=== PATIENT | female | born 1990 | race Caucasian/White ===

== ENCOUNTER 2017-12-24 18:42 | Emergency (ER) | payer OTHER ==
[2017-12-24 19:02] VITALS: BP 120/74; PULSE 79; RESP 16; TEMP 98.8; O2SAT 99
[2017-12-24] MEDS ORDERED: CA CL/K CL/NA CL 500 ML IR ONE (19:37)
--- NOTE | 2017-12-24 19:41 | ED PDOC ---
HPI: Eye Injury/Pain Time Seen by Provider: 12/24/17 19:15 Chief Complaint (Nursing): Eye Problem Additional Complaint(s): 27 YO F with no significant PMH presents to the ED after having irritation of her right eye. She was washing her face with facial scrub and got it in her right eye around 1 pm. Since then she has been irrigating it with water continuously, but continues to have irritation in her right eye. Denies any other trauma to the region. Vision is intact. She is concerned there is still foreign bodies in the eye. Past Medical History Vital Signs: Last Vital Signs Temp 98.8 F 12/24/17 18:57 Pulse 79 12/24/17 18:57 Resp 16 12/24/17 18:57 BP 120/74 12/24/17 18:57 Pulse Ox 99 12/24/17 18:57 - Medical History PMH: No Chronic Diseases - Surgical History Surgical History: No Surg Hx - Family History Family History: States: No Known Family Hx - Social History Alcohol: None Drugs: Denies - Home Medications Home Medications: Ambulatory Orders Medication Instructions Recorded Ofloxacin Ophth 0.3% [Ocuflox 2 drop OS QID #1 bottle 12/24/17 Ophth 0.3%] - Allergies Allergies/Adverse Reactions: Allergies Allergy/AdvReac Type Severity Reaction Status Date / Time No Known Allergies Allergy Verified 12/24/17 18:57 Review of Systems ROS Statement: Except As Marked, All Systems Reviewed And Found Negative Physical Exam - Physical Exam Appears: Positive for: No Acute Distress Head Exam: Positive for: NORMAL INSPECTION Skin: Positive for: Normal Color Eye Exam: Positive for: Normal appearance ENT: Positive for: Other (Right eye diffuse erythema. No forign body noted. Able to move eye in all directions. Under tetracaine floresent dye was applied to patients right eye and multiple corneal abrasions noted from 9 oclock position to 3 o clock positioin. Vision 20/20 with glasses b/l) Neck: Positive for: Normal Cardiovascular/Chest: Positive for: Regular Rate, Rhythm Respiratory: Positive for: Normal Breath Sounds. Negative for: Crackles, Rales , Wheezing, Respiratory Distress Neurologic/Psych: Positive for: Alert, immunopathologist II-XII, Oriented. Negative for: Motor/Sensory Deficits - ECG O2 Sat by Pulse Oximetry: 99 Medical Decision Making Medical Decision Making: Tetracain drops applied to the eye: Eye observed under florescent dye with gross lamp: Multiple corneal abrasions noted from 9 o clock to 3 o clock position. Eye irrigation applied via morgans lens: Thoroughly cleaned. Eye patch applied - Topical antibiotic eye drops given. Disposition - Clinical Impression Clinical Impression: Eye irritation, Corneal abrasion, right - Patient ED Disposition Is Patient to be Admitted: No - Disposition Referrals: Jose Eduardo Lisa MD [Staff Provider] - Disposition: Routine/Home Disposition Time: 19:59 Condition: GOOD Additional Instructions: Please follow up with PMD in 2-3 days - Continue to keep eye covered with eye patch for the next 24 hours. - Apply eye drops every 4 hours for the next 7 days. - If symptoms worsen or vision becomes compromised please return to the ED. Prescriptions: Ofloxacin Ophth 0.3% [Ocuflox Ophth 0.3%] 2 drop OS QID #1 bottle Instructions: Corneal Abrasion, Corneal Abrasion (DC) Forms: [facility] (Malaysian), [facility] ED School/Work Excuse Print Language: [id number] - POA Present On Arrival: None
== END 2017-12-24 20:09 | disposition home or self-care (01) ==
LOC: H.ER 18:42
DX: S05.01XA Injury of conjunctiva and corneal abrasion without foreign body, right eye, initial encounter (principal); Y92.89 Other specified places as the place of occurrence of the external cause